=== PATIENT | male | born 1975 | race Caucasian/White ===

== ENCOUNTER 2017-08-27 14:55 | Emergency (ER) | payer BC ==
[2017-08-27] MEDS ORDERED: Ondansetron 4 MG/2 ML SDV IVPUSH ONE (15:25)
[2017-08-27] MEDS ORDERED: Sodium Chloride 0.9% 500 ML IV SCH (15:30)
--- NOTE | 2017-08-27 15:30 | EDM.PDOC ---
ED HPI GENERAL MEDICAL PROBLEM - General Chief Complaint: Neurological Problem Stated Complaint: VOMITTING AND HAND ARE NUMB Time Seen by Provider: 08/27/17 15:08 Source of Information: Reports: Patient History Limitations: Reports: No Limitations - History of Present Illness INITIAL COMMENTS - FREE TEXT/NARRATIVE: HISTORY AND PHYSICAL: History of present illness: Patient is a 42-year-old male who presents to the emergency room today with complaints of anxiety, bilateral arm tingling and palpitations. Patient states that he has been working since yesterday afternoon, had 7 beers during the night , early this morning around 1 AM had a 5 shot espresso drink/coffee. Since that time he has had notations, feeling like his arms are tingling and anxious. He states he does not do caffeine well and is concerned that the espresso drink he had is making him sick. His had intermittent nausea. He denies any shortness of breath, fever, chills, abdominal pain, vomiting, diarrhea or constipation. Has no urinary symptoms or complaints. Denies any recent trauma or injury. Denies any syncopal or near syncopal events. Denies any alcohol or drug abuse. Review of systems: As per history of present illness and below otherwise all systems reviewed and negative. Past medical history: As per history of present illness and as reviewed below otherwise noncontributory. Surgical history: As per history of present illness and as reviewed below otherwise noncontributory. Social history: No reported history of drug or alcohol abuse. Family history: As per history of present illness and as reviewed below otherwise noncontributory. Physical exam: General: Well-developed and well-nourished 42-year-old male. Alert and oriented. Nontoxic appearing, appears mildly anxious and fidgety. HEENT: Atraumatic, normocephalic, pupils reactive, negative for conjunctival pallor or scleral icterus, scleral injection bilaterally, mucous membranes moist , tympanic membranes normal bilaterally, throat clear, neck supple, nontender, trachea midline. No drooling or trismus or meningeal signs. Lungs: Clear to auscultation, breath sounds equal bilaterally, chest nontender. Heart: S1S2, regular rate and rhythm Abdomen: Soft, nondistended, nontender. Negative for masses or hepatosplenomegaly. Negative for costovertebral tenderness. Pelvis: Stable nontender. Genitourinary: Deferred. Rectal: Deferred. Extremities: Atraumatic, moves all extremities per self negative for cords or calf pain. Neurovascular unremarkable. Neuro: Awake, alert, oriented. Cranial nerves II through XII unremarkable. Cerebellum unremarkable. Motor and sensory unremarkable throughout. Exam nonfocal. Upon assessing the patient he does appear fidgety on the cot and has fallen chela tremors of his hands. When asked why he is shaking his hands he states that he is "scared of the coffee drink ". He is agreeable to receiving routine lab work and IV fluids/Zofran. CBC, CMP, and troponin are within normal limits. EKG shows a normal sinus rhythm with a heart rate of 81. Chest x-ray is free of pneumonia or infiltrate. This information was shared with the patient. He states he does feel improved after receiving the IV fluids. Encouraged patient to go home and eat and sleep, as he has not done either in almost 24 hours. Diagnostics: CBC, CMP, troponin, EKG, chest x-ray, drug screen Therapeutics: IV fluid, Zofran Impression: Caffiene Consumption Palpitations Plan: 1. Please avoid caffeine and alcohol. Take the rest of the day rest, please go home and eat and sleep. Drink plenty of fluids. 2. Follow up with her primary care provider in the next couple days. Return to the ED as needed and as discussed. Definitive disposition and diagnosis as appropriate pending reevaluation and review of above. Onset: Today Duration: Hour(s): Location: Reports: Generalized - Related Data Allergies Allergy/AdvReac Type Severity Reaction Status Date / Time Penicillins Allergy Airway Verified 08/27/17 15:16 Tightness Tetanus Vaccines and Toxoid Allergy Airway Verified 08/27/17 15:16 Tightness zinc [From Cold-Eeze] Allergy Airway Verified 08/27/17 15:16 Tightness Home Meds: Home Meds . [No Known Home Meds] 08/27/17 [History] Social & Family History - Tobacco Use Smoking Status *Q: Never Smoker - Caffeine Use Caffeine Use: Reports: Coffee - Recreational Drug Use Recreational Drug Use: No ED ROS GENERAL - Review of Systems Review Of Systems: ROS reveals no pertinent complaints other than HPI. ED EXAM, GENERAL - Physical Exam Exam: See Below (see dictation) Course - Vital Signs Last Recorded V/S: Last Vital Signs Temp 99.7 F 08/27/17 15:17 Pulse 85 08/27/17 15:17 Resp 18 08/27/17 15:17 BP 147/102 H 08/27/17 15:17 Pulse Ox 96 08/27/17 15:17 - Orders/Labs/Meds Orders: Active Orders 24 hr Category Date Time Status EKG Documentation Completion [RC] STAT Care 08/27/17 15:25 Active Sodium Chloride 0.9% [Normal Saline] 500 ml Med 08/27/17 15:30 Active IV STAT Medication Orders Sodium Chloride (Normal Saline) 500 mls @ 999 mls/hr IV STAT EZ Last Admin: 08/27/17 16:05 Dose: 999 mls/hr Labs: Laboratory Tests 08/27/17 08/27/17 08/27/17 Range/Units 15:49 15:49 16:20 WBC 5.59 (4.0-11.0) K/uL RBC 4.92 (4.50-5.90) M/uL Hgb 15.5 (13.0-17.0) g/dL Hct 45.0 (38.0-50.0) % MCV 91.5 (80.0-98.0) fL MCH 31.5 (27.0-32.0) pg MCHC 34.4 (31.0-37.0) g/dL RDW Std Deviation 43.4 (28.0-62.0) fl RDW Coeff of Jacqueline 13 (11.0-15.0) % Plt Count 249 (150-400) K/uL MPV 9.20 (7.40-12.00) fL Neut % (Auto) 56.2 (48.0-80.0) % Lymph % (Auto) 34.2 (16.0-40.0) % [place] % (Auto) 8.1 (0.0-15.0) % Eos % (Auto) 1.1 (0.0-7.0) % Baso % (Auto) 0.4 (0.0-1.5) % Neut # (Auto) 3.2 (1.4-5.7) K/uL Lymph # (Auto) 1.9 (0.6-2.4) K/uL [place] # (Auto) 0.5 (0.0-0.8) K/uL Eos # (Auto) 0.1 (0.0-0.7) K/uL Baso # (Auto) 0.0 (0.0-0.1) K/uL Nucleated RBC % 0.0 /100WBC Nucleated RBCs # 0 K/uL Sodium 137 (136-146) mmol/L Potassium 4.2 (3.5-5.1) mmol/L Chloride 106 (98-110) mmol/L Carbon Dioxide 19 L (21-31) mmol/L BUN 10 (6.0-23.0) mg/dL Creatinine 0.9 (0.6-1.5) mg/dL Est Cr Clr Drug Dosing TNP Estimated GFR (MDRD) > 60.0 ml/min Glucose 118 H (60-110) mg/dL Calcium 9.7 (8.8-10.8) mg/dL Total Bilirubin 0.8 (0.1-1.5) mg/dL AST 19 (5-40) IU/L ALT 43 (8-54) IU/L Alkaline Phosphatase 70 (40-150) Troponin I < 0.10 (0.0-0.29) NG/ML Total Protein 8.2 H (6.0-8.0) g/dL Albumin 4.9 (3.5-5.0) g/dL Globulin 3.3 (2.0-3.5) g/dL Albumin/Globulin Ratio 1.5 (1.3-2.8) Urine Opiates Screen NEGATIVE (NEGATIVE) Ur Oxycodone Screen NEGATIVE (NEGATIVE) Urine Methadone Screen NEGATIVE (NEGATIVE) Ur Barbiturates Screen NEGATIVE (NEGATIVE) Ur Phencyclidine Scrn NEGATIVE (NEGATIVE) Ur Amphetamine Screen NEGATIVE (NEGATIVE) U Methamphetamines Scrn NEGATIVE (NEGATIVE) U Benzodiazepines Scrn NEGATIVE (NEGATIVE) U Cocaine Metab Screen NEGATIVE (NEGATIVE) U Marijuana (THC) Screen NEGATIVE (NEGATIVE) Meds: Medications Generic Name Dose Route Start Last Admin Trade Name Freq PRN Reason Stop Dose Admin Sodium Chloride 500 mls @ 999 mls/hr 08/27/17 15:30 08/27/17 16:05 Normal Saline IV 999 mls/hr STAT EZ Administration Discontinued Medications Generic Name Dose Route Start Last Admin Trade Name Freq PRN Reason Stop Dose Admin Ondansetron HCl 4 mg 08/27/17 15:25 08/27/17 16:06 Zofran IVPMACK 08/27/17 15:26 4 mg ONETIME ONE Administration Departure - Departure Time of Disposition: 16:46 Disposition: Home, Self-Care 01 Clinical Impression: Caffeine use, Palpitations - Discharge Information Referrals: PCP,None [Primary Care Provider] - Forms: ED Department Discharge Additional Instructions: My general discharge The following information is given to patients seen in the emergency department who are being discharged to home. This information is to outline your options for follow-up care. We provide all patients seen in our emergency department with a follow-up referral. The need for follow-up, as well as the timing and circumstances, are variable depending upon the specifics of your emergency department visit. If you don't have a primary care physician on staff, we will provide you with a referral. We always advise you to contact your personal physician following an emergency department visit to inform them of the circumstance of the visit and for follow-up with them and/or the need for any referrals to a consulting specialist. The emergency department will also refer you to a specialist when appropriate. This referral assures that you have the opportunity for follow-up care with a specialist. All of these measure are taken in an effort to provide you with optimal care, which includes your follow-up. Under all circumstances we always encourage you to contact your private physician who remains a resource for coordinating your care. When calling for follow-up care, please make the office aware that this follow-up is from your recent emergency room visit. If for any reason you are refused follow-up, please contact the [facility] Emergency Department at and asked to speak to the emergency department charge nurse. [facility] [address] [place] [id number] 1. Please avoid caffeine and alcohol. Take the rest of the day rest, please go home and eat and sleep. Drink plenty of fluids. 2. Follow up with her primary care provider in the next couple days. Return to the ED as needed and as discussed. - My Orders Last 24 Hours: My Active Orders 08/27/17 15:25 EKG Documentation Completion [RC] STAT 08/27/17 15:30 Sodium Chloride 0.9% [Normal Saline] 500 ml IV STAT - Assessment/Plan Last 24 Hours: My Active Orders 08/27/17 15:25 EKG Documentation Completion [RC] STAT 08/27/17 15:30 Sodium Chloride 0.9% [Normal Saline] 500 ml IV STAT
[2017-08-27 16:17] LABS: CHLORIDE,CL 106 mmol/L (98-110); SODIUM,NA 137 mmol/L (136-146)
--- NOTE | 2017-08-27 16:17 | CR ---
EXAMINATION: Portable chest radiograph. HISTORY: Shortness of breath. FINDINGS: The trachea is midline. The cardiomediastinal silhouette is within normal limits. No pulmonary infilt rates, effusions or pneumothorax. Osseous structures appear unremarkable. IMPRESSION: No acute cardiopulmonary process.
== END 2017-08-27 17:23 | disposition home or self-care (01) ==
LOC: MW.ED 14:55
DX: R00.2 Palpitations (principal); F15.90 Other stimulant use, unspecified, uncomplicated; Z88.0 Allergy status to penicillin; Z88.7 Allergy status to serum and vaccine; Z88.8 Allergy status to other drugs, medicaments and biological substances
CPT/HCPCS: 36415; 71045; 80053; 80305; 84484; 85025; 96361; 96374; 99284; J2405; J7040

== ENCOUNTER 2021-11-05 09:49 | Emergency (ER) | payer BC ==
[2021-11-05] MEDS ORDERED: Sodium Chloride 0.9% 10 ML Syringe FLUSH PRN (09:55)
[2021-11-05] MEDS ORDERED: Sodium Chloride 0.9% 2.5 ML Syringe FLUSH PRN (09:55)
[2021-11-05] MEDS ORDERED: Sodium Chloride 0.9% 1,000 ML IV ONE (10:13)
[2021-11-05] MEDS ORDERED: Ketorolac 30 MG/ML SDV IVPUSH ONE (10:13)
[2021-11-05 11:43] LABS: BLOOD UREA NITROGEN,BUN 11 mg/dL (7.0-18.0); CARBON DIOXIDE,CO2 25.4 mmol/L (21.0-32.0); CHLORIDE,CL 102 mmol/L (98-107); GLUCOSE RANDOM 110 mg/dL (74-106); LIPASE 38 U/L (73-393); POTASSIUM,K 3.9 mmol/L (3.5-5.1); SODIUM,NA 137 mmol/L (136-148)
[2021-11-05] MEDS ORDERED: Iopamidol 755 MG/ML 500 ML Multipack Bottle IVPUSH STA (11:44)
== END 2021-11-05 12:56 | disposition home or self-care (01) ==
LOC: MW.ED 09:49
DX: K57.32 Diverticulitis of large intestine without perforation or abscess without bleeding (principal); Z88.0 Allergy status to penicillin; Z88.7 Allergy status to serum and vaccine; Z91.048 Other nonmedicinal substance allergy status
CPT/HCPCS: 36415; 74177; 80053; 81003; 83690; 85025; 96374; 99284; J1885; J3490; J7030; Q9967

== ENCOUNTER 2021-12-24 07:17 | Day surgery (SDC) | payer BC ==
[~2021-12-24 07:17] MED LIST: Lactated Ringers 1,000 ML IV SCH
[2021-12-24] MEDS ORDERED: Ondansetron 4 MG/2 ML SDV ONE (07:45)
[2021-12-24] MEDS ORDERED: fentaNYL 100 MCG/2 ML SDV ONE (07:45)
[2021-12-24] MEDS ORDERED: Propofol 200 MG/20 ML SDV ONE ×2 (07:45→08:50)
== END 2021-12-24 09:40 | disposition home or self-care (01) ==
LOC: MW.SDS 07:17
PROVIDERS: ATTEND Surgery
DX: Z12.11 Encounter for screening for malignant neoplasm of colon (principal); K63.5 Polyp of colon; K57.30 Diverticulosis of large intestine without perforation or abscess without bleeding; K64.9 Unspecified hemorrhoids; E78.1 Pure hyperglyceridemia; Z88.0 Allergy status to penicillin; Z88.7 Allergy status to serum and vaccine; Z87.19 Personal history of other diseases of the digestive system; Z88.6 Allergy status to analgesic agent
CPT/HCPCS: 45380; J2405; J2704; J3010; J7120; 00813

== ENCOUNTER 2022-02-07 10:25 | Emergency (ER) | payer BC ==
[2022-02-07] MEDS ORDERED: Sodium Chloride 0.9% 1,000 ML IV ONE (10:39)
[2022-02-07] MEDS ORDERED: Ondansetron 4 MG/2 ML SDV IVPUSH ONE (10:39)
[2022-02-07] MEDS ORDERED: HYDROmorphone 1 MG/ML Syringe IVPUSH ONE ×2 (10:39→13:27)
[2022-02-07 11:42] LABS: CARBON DIOXIDE,CO2 25.8 mmol/L (21.0-32.0)
[2022-02-07] MEDS ORDERED: Iopamidol 755 MG/ML 500 ML Multipack Bottle IVPUSH STA (12:17)
[2022-02-07] MEDS ORDERED: metroNIDAZOLE 250 MG Tab PO ONE (13:29)
[2022-02-07] MEDS ORDERED: Ciprofloxacin 500 MG Tab PO ONE (13:29)
== END 2022-02-07 14:10 | disposition home or self-care (01) ==
LOC: MW.ED 10:25
DX: K57.32 Diverticulitis of large intestine without perforation or abscess without bleeding (principal); Z88.8 Allergy status to other drugs, medicaments and biological substances; Z88.0 Allergy status to penicillin; Z88.7 Allergy status to serum and vaccine; Z79.899 Other long term (current) drug therapy
CPT/HCPCS: 36415; 74177; 80053; 81003; 85025; 96361; 96374; 96375; 96376; 99284; A9270; J1170; J2405; J7030; Q9967

== ENCOUNTER 2025-03-21 07:29 | Day surgery (SDC) | payer BC ==
[2025-03-21] MEDS ORDERED: Bupivacaine 0.5%/EPINEPHrine 1:200,000 30 ML SDV ONE (07:32)
[2025-03-21] MEDS: Lactated Ringers 1,000 ML IV SCH (08:00)
[2025-03-21] MEDS ORDERED: Midazolam 1 MG/ML 2 ML SDV ONE (08:04)
[2025-03-21] MEDS: Clindamycin Phosphate in D5W 600 MG in Premix Bag 1 BAG IV ONE (08:06)
[2025-03-21] MEDS ORDERED: propofoL 500 MG/50 ML 50 ML ONE ×2 (08:08→09:08)
[2025-03-21] MEDS ORDERED: fentaNYL 250 MCG/5 ML SDV ONE (08:09)
[2025-03-21] MEDS ORDERED: Propofol 200 MG/20 ML SDV ONE (08:09)
[2025-03-21] MEDS ORDERED: Ropivacaine 0.5% 5 MG/ML 30 ML SDV ONE (08:15)
[2025-03-21] MEDS ORDERED: dexmedeTOMIDine HCl 200 MCG/2 ML SDV ONE (08:17)
[2025-03-21] MEDS ORDERED: Ketamine HCL/NACL, ISO-OSM 50 MG/5 ML Syringe ONE (08:19)
[2025-03-21] MEDS ORDERED: Albuterol 0.083% 2.5 MG/3 ML Neb Soln NEB PRN (08:56)
[2025-03-21] MEDS ORDERED: Naloxone 0.4 MG/ML SDV IVPUSH PRN (08:56)
[2025-03-21] MEDS ORDERED: Ondansetron 4 MG/2 ML SDV IVPUSH PRN (08:56)
[2025-03-21] MEDS ORDERED: fentaNYL 50 MCG/ML SDV IVPUSH PRN (08:56)
[2025-03-21] MEDS ORDERED: Dexamethasone 4 MG/ML 5 ML MDV ONE (09:20)
[2025-03-21] MEDS ORDERED: Ketorolac 30 MG/ML SDV ONE (09:20)
[2025-03-21] MEDS ORDERED: Ondansetron 4 MG/2 ML SDV ONE (09:20)
== END 2025-03-21 12:18 | disposition home or self-care (01) ==
LOC: MW.SDS 07:29
PROVIDERS: ATTEND Orthopaedic Surgery
DX: S82.831A Other fracture of upper and lower end of right fibula, initial encounter for closed fracture (principal); S93.421A Sprain of deltoid ligament of right ankle, initial encounter; S93.431A Sprain of tibiofibular ligament of right ankle, initial encounter; I10 Essential (primary) hypertension; E66.9 Obesity, unspecified; F17.290 Nicotine dependence, other tobacco product, uncomplicated; Z88.8 Allergy status to other drugs, medicaments and biological substances; Z68.31 Body mass index [BMI] 31.0-31.9, adult; Z79.82 Long term (current) use of aspirin; Z79.899 Other long term (current) drug therapy
CPT/HCPCS: 27792; 27829; C1713; J0690; J0736; J1100; J1171; J1885; J2003; J2250; J2405; J2704; J2795; J3010; J7120; J0665; J3490